=== PATIENT | female | born 1995 | race Caucasian/White ===

== ENCOUNTER → 2023-05-03 | Outpatient (CLI) | payer OTHER | LOC: M WHC 12:22 | PROVIDERS: ATTEND Advanced Practice Midwife | DX: Z34.82 Encounter for supervision of other normal pregnancy, second trimester (principal) ==

== ENCOUNTER → 2023-06-17 | Outpatient (CLI) | payer OTHER ==
[2023-06-17 17:54] LABS: HEMATOCRIT 34.3 % (36.0-47.0); HEMOGLOBIN 11.4 g/dl (12.0-15.5); MEAN CORPUSCULAR HEMOGLOBIN 30.6 pg (27.0-33.0); MEAN CORPUSCULAR HGB CONC 33.2 g/dl (32.0-36.5); MEAN CORPUSCULAR VOLUME 92.2 fl (80.0-96.0); PLATELET COUNT, AUTOMATED 227 10^3/uL (150-450); RED BLOOD COUNT 3.72 10^6/uL (4.00-5.40); WHITE BLOOD COUNT 9.8 10^3/uL (4.0-10.0)
[2023-06-17 21:28] LABS: CHLAMYDIA DNA AMPLIFICATION NEGATIVE (NEGATIVE); GC DNA AMPLIFICATION NEGATIVE (NEGATIVE)
== END ==
LOC: M PLALAB 14:34
PROVIDERS: ATTEND Specialist
DX: Z34.82 Encounter for supervision of other normal pregnancy, second trimester (principal)

== ENCOUNTER → 2023-08-12 | Outpatient (REF) | payer OTHER | LOC: M PLALAB 08:54 | PROVIDERS: ATTEND Advanced Practice Midwife | DX: Z34.83 Encounter for supervision of other normal pregnancy, third trimester (principal); Z3A.00 Weeks of gestation of pregnancy not specified ==

== ENCOUNTER 2023-09-09 11:36 | Inpatient (IN) | payer OTHER ==
[~2023-09-09] VITALS: Ht 180.3 cm; Wt 93.8 kg
[2023-09-09] MEDS: PRENATAL VITAMINS CHEWABLE TABLET PO SCH (09:00)
[~2023-09-09 11:36] MED LIST: **PENDING PCN ENTRY XX SCH
[2023-09-09 12:05] VITALS: BP 138/73
[2023-09-09] MEDS ORDERED: LR 1,000 ML IV SCH (12:15)
[2023-09-09] MEDS ORDERED: LIDOCAINE 1% MDV 20ML VIAL INFIL PRN (12:15)
[2023-09-09] MEDS ORDERED: OXYTOCIN DRIP 30 UNITS in IV 1 EA IV PRN (12:15)
[2023-09-09] MEDS ORDERED: METHYLERGONOVINE MALEATE 0.2MG/ML 1ML VIAL IM PRN (12:15)
[2023-09-09] MEDS ORDERED: CARBOPROST TROMETHAMINE 250 MCG/ML AMP IM PRN (12:15)
[2023-09-09] MEDS: LACTATED RINGER'S 1000 ML IV STA (12:15)
[2023-09-09] MEDS ORDERED: TRANEXAMIC ACID INJection 1,000 MG in NS 100 ML IV PRN (12:15)
[2023-09-09] MEDS ORDERED: EPIDURAL/PCA KEYS XX PRN (12:50)
[2023-09-09] MEDS ORDERED: ePHEDrine SULFATE 25 MG/5 ML(5MG/ML) SYRINGE IVP PRN (12:50)
[2023-09-09] MEDS ORDERED: diphenhydrAMINE 50MG/ML VIAL IV PRN (12:50)
[2023-09-09] MEDS ORDERED: FENTANYL/ROPIVACAINE/NACL BAG 100 ML EPIDURAL SCH (12:50)
[2023-09-09] MEDS ORDERED: NALOXONE INJ 0.4MG/1ML VIAL IV PRN (12:50)
[2023-09-09] MEDS ORDERED: ONDANSETRON 4MG 2ML VIAL IV PRN (12:50)
[2023-09-09] MEDS ORDERED: LR 500 ML IV PRN (12:50)
[2023-09-09] MEDS: PENICILLIN G POTASSIUM 5 MU IV 5 MU in D5W MINI-BAG PLUS 100 ML IV STA (12:54)
[2023-09-09 12:56] LABS: HEMATOCRIT 33.5 % (36.0-47.0); HEMOGLOBIN 11.8 g/dl (12.0-15.5); MEAN CORPUSCULAR HEMOGLOBIN 30.3 pg (27.0-33.0); MEAN CORPUSCULAR HGB CONC 35.2 g/dl (32.0-36.5); MEAN CORPUSCULAR VOLUME 85.9 fl (80.0-96.0); PLATELET COUNT, AUTOMATED 236 10^3/uL (150-450); WHITE BLOOD COUNT 14.2 10^3/uL (4.0-10.0)
[2023-09-09 13:51] VITALS: BP 136/63
[2023-09-09 14:14] VITALS: BP 143/66
[2023-09-09 14:22] VITALS: BP 134/58
[2023-09-09] MEDS ORDERED: ANUSOL HC CREAM 30GM TOP PRN (14:40)
[2023-09-09] MEDS ORDERED: MOM 30ML SUSPENSION UDC PO PRN (14:40)
[2023-09-09] MEDS ORDERED: DOCUSATE SODIUM 100MG CAPSULE PO PRN (14:40)
[2023-09-09] MEDS ORDERED: IBUPROFEN 600MG TAB PO PRN (14:40)
[2023-09-09] MEDS ORDERED: ACETAMINOPHEN TAB 650MG DOSE (2X325MG) PO PRN (14:40)
[2023-09-09] MEDS ORDERED: IBUPROFEN 800 MG TAB PO PRN (14:40)
[2023-09-09] MEDS ORDERED: METHYLERGONOVINE MALEATE 0.2 MG TAB PO PRN (14:40)
[2023-09-09] MEDS: ACETAMINOPHEN 500 MG TAB PO PRN (15:03)
[2023-09-09] MEDS ORDERED: PEN G POT 3,000,000 UNIT/50 ML 3,000,000 UNIT in IV 1 EA IV SCH ×2 (16:15→17:00)
[2023-09-09 16:30] VITALS: BP 132/62; O2SAT 98
[2023-09-09] MEDS: DIBUCAINE 1% OINTMENT 30GM TOP PRN (16:53)
[2023-09-09 18:00] VITALS: BP 129/58; O2SAT 99
[2023-09-10 06:00] VITALS: BP 121/59; O2SAT 98
[2023-09-10] MEDS: RHOGAM 300MCG (1500IU) INJ IM SCH (07:34)
[2023-09-11] MEDS ORDERED: MEASLES,MUMPS,RUBELLA VACCINE INJ (MMR-II) SC.IMMUN ONE (09:00)
== END 2023-09-10 15:10 | disposition home or self-care (01) | DRG 807 ==
LOC: M LDO 11:36 → M LDI 12:17 → M OBS 16:29
PROVIDERS: ADMIT Advanced Practice Midwife; ATTEND Advanced Practice Midwife
PROC: 10E0XZZ Delivery of Products of Conception, External Approach (ICD-10-PCS; principal; 2023-09-09)
DX: O32.6XX0 Maternal care for compound presentation, not applicable or unspecified (principal); Z37.0 Single live birth; Z3A.40 40 weeks gestation of pregnancy; O99.824 Streptococcus B carrier state complicating childbirth